=== PATIENT | male | born 1985 | race Hispanic/Latino ===

== ENCOUNTER 2020-10-08 20:12 | Inpatient (IN) | payer SELFPAY ==
[~2020-10-08 20:12] MED LIST: Iopamidol-370 76% 500 ML 1 ML ONE
[2020-10-08] MEDS ORDERED: Acetaminophen 500 MG TAB ONE ×2 (20:42→20:53)
[2020-10-08] MEDS ORDERED: Dexamethasone 10 MG/ML VIAL ONE (20:53)
[2020-10-08 20:57] LABS: #Basophils 0.1 thou/uL (0.0-0.2); #Lymphocytes 1.6 thou/uL (1.20-3.40); #Monocytes 0.7 thou/uL (0.11-0.59); #Neutrophils 7.4 thou/uL (1.40-6.50); %Basophils 0.7 % (0.0-1.0); %Eosinophils 0.2 % (0.0-10.0); %Lymphocytes 16.2 % (21.0-51.0); %Monocytes 7.1 % (0.0-10.0); %Neutrophils 75.9 % (42.0-75.0); Hemoglobin 14.6 g/dL (14.0-18.0); Mean Corpuscular HGB CONC 33.4 g/dL (32.0-36.0); Mean Corpuscular Hemoglobin 29.4 pg (27.0-31.0); Mean Platelet Volume 7.7 fL (7.4-10.4); Platelet Count 290 thou/uL (130-400); RBC Distribution Width 12.4 % (11.5-14.5); Red Blood Cell (RBC) Count 4.96 mill/uL (4.70-6.10); White Blood Cell (WBC) Count 9.7 thou/uL (4.8-10.8)
[2020-10-08 21:17] LABS: ALT (SGPT) 83 U/L (8-55); AST (SGOT) 64 U/L (5-34); Albumin 3.5 g/dL (3.5-5.0); Alkaline Phosphatase 80 U/L (40-110); Anion Gap 15 mmol/L (10-20); BUN (Urea Nitrogen) 8 mg/dL (8.9-20.6); Bilirubin, Total 0.4 mg/dL (0.2-1.2); Calc. Creatinine Clearance 0 mL/min (70-130); Calcium 8.2 mg/dL (7.8-10.44); Carbon Dioxide 25 mmol/L (22-29); Chloride 101 mmol/L (98-107); Globulin 3.5 g/dL (2.4-3.5); Glucose 140 mg/dL (70-105); Potassium 3.9 mmol/L (3.5-5.1); Sodium 137 mmol/L (136-145)
--- NOTE | 2020-10-08 21:17 | RAD ---
Portable frontal chest radiograph: 10/08/2020 COMPARISON: None HISTORY: Dyspnea FINDINGS: There is multifocal interstitial and alveolar groundglass opacity bilaterally with a perihi lar/bibasilar predominance, left greater than right. Findings are suspicious for bilateral Covid pneumonia in the proper clinical setting. No pneumothorax or large volume pleural effusion. IMPRESSION: Interstitial and alveolar opacity suspicious for extensive bilateral Covid pneumonia.
--- NOTE | 2020-10-08 22:12 | CT ---
CT angiogram chest: 10/08/2020 COMPARISON: None HISTORY: Dyspnea, shortness of breath, findings concerning for Covid pneumonia on recent chest x-ray TECHNIQUE: Axial CT imaging at 2.5 mm intervals through the chest with IV contrast. Coronal and obliq ue sagittal 3-D reformatted imaging obtained. FINDINGS: There is a vague focal area of hypodensity in the midpole of the right kidney suggest an in completely assessed cyst. Visualized upper abdomen grossly unremarkable otherwise. No axillary lymphadenopathy. No discrete enlarged mediastinal or hilar lymph nodes. Suboptimal opacif ication of the pulmonary arterial vasculature and significant motion artifact limits detailed assessment for distal pulmonary arterial embolism. No central pulmonary arterial embolism is seen inv olving the pulmonary arterial trunk or either main pulmonary artery. No significant pleural, pericardial, or mediastinal fluid. There is multifocal peripheral airspace disease within bilateral upper lobes, left greater than right and within both lower lobes with a posterior inferior predominance. These findings are most consistent with extensive bilateral Covid pneumonia. No acute osseous abnormality. No discrete endobr onchial lesion. IMPRESSION: Limited assessment for pulmonary arterial embolism with no evidence for a central acute p ulmonary arterial embolism. There is extensive pulmonary parenchymal opacity suggesting bilateral Covid pneumonia.
[2020-10-08 22:36] LABS: SARS-CoV-2 NAA Rapid Test DETECTED (NotDetected)
--- NOTE | 2020-10-09 00:11 | PDOC.HHP ---
Hospitalist HPI - History of Present Illness Dyspnea History of Present Illness: PCP: [facility] The patient is a 34-year-old male with no significant past medical history the presents to emergency department for the above complaint. The patient reports worsening shortness of breath, cough and fever over the past week. He was diagnosed with Covid on 10/01/2020. His symptoms began on 09/29/2020. At that time he had mild shortness of breath, nonproductive cough and fever, T-max 103 Fahrenheit. He was started on Augmentin and given Tessalon Perles as needed, along with an albuterol HFA inhaler. Since he has had worsening symptoms. He denies loss of smell and taste. He denies abdominal pain, nausea, vomiting, diarrhea. He denies any dysuria or hematuria. He has no history of DVT/PE. No history of asthma/COPD. He denies any chest pain, heart palpitations lightheadedness or swelling to his lower extremities. For these reasons he came to emergency department for further evaluation. ED Course: VITAL SIGNS TueOct 08, 2020 20:14 ADRI Wick Catherine Pulse: 88, Resp: 28, Temp: 103.3 (Oral), O2 sat: 87 on (Room Air), Time: 10/08/2020 20:14. VITAL SIGNS TueOct 08, 2020 20:29 Kuhn RN, Daniel BP: 154/92, Pulse: 120, Resp: 38, Temp: 103.2 (Oral), Pain: 0, O2 sat: 99 on (Room Air), Time: 10/08/2020 20:29. VITAL SIGNS TueOct 08, 2020 22:48 Kuhn RN, Daniel BP: 130/76, Pulse: 98, Resp: 38, Temp: 99.8 (Oral), Pain: 0, O2 sat: 100 on (2L Oxygen), Time: 10/08/2020 22:48. VITAL SIGNS TueOct 08, 2020 21:30 Kuhn RN, Daniel BP: 130/81, Pulse: 105, Resp: 34, Pain: 0, O2 sat: 100 on (2L Oxygen), Time: 10/08/2020 21:30. Medications: dexamethasone 10 mg IV Push Given 21:03 10/08/2020 sodium chloride 0.9 % intravenous 500 mL IV Fluid Infusion Given 20:52 10/08/2020 acetaminophen oral 1 g Oral Given 20:51 10/08/2020 Hospitalist ROS - Review of Systems All other systems reviewed; all pertinent +/- noted in HPI/Subj - Medication Medications: amoxicillin-pot clavulanate TueOct 08, 2020 20:46 Kuhn RN, Daniel tablet : Strength - 875 mg-125 mg : ORAL Patient Dose: every 12 hours.FOR 7 DAYS. benzonatate TueOct 08, 2020 20:46 Kuhn RN, Daniel capsule : Strength - 100 mg : ORAL Patient Dose: 3 times a day. Allergy Relief (fluticasone) TueOct 08, 2020 20:47 Kuhn RN, Daniel spray,suspension : Strength - 50 mcg/actuation : NASAL Patient Dose: once a day. albuterol TueOct 08, 2020 20:51 Kuhn RN, Daniel aerosol : Strength - 90 mcg : INHALATION Patient Dose: every 4 hours prn. Allergies: NKDA Hospitalist History - Past Medical History Source: patient Cardiac: reports: no pertinent history Pulmonary: reports: no pertinent history - Past Surgical History Past Surgical History: reports: no pertinent history - Family History Other Family History: Noncontributory to this case. - Social History Smoking Status: Never smoker Alcohol: reports: None Drugs: reports: none Living Situation: With Family Activity level: independent ambulation - Exam General Appearance: NAD, awake alert. negative: ill appearing General - other findings: Appears comfortable on 2 L nasal cannula Eye: anicteric sclera ENT: normocephalic atraumatic, moist mucosa Neck: supple, no lymphadenopathy Heart: RRR, no murmur, no gallops, no rubs, normal peripheral pulses Respiratory: CTAB, no wheezes, no rales, no ronchi, normal chest expansion, no tachypnea Gastrointestinal: soft, non-tender, non-distended, normal bowel sounds, no guarding, no rigidity Extremities: no cyanosis, no edema Skin: no rashes Neurological: no focal deficits Musculoskeletal: normal tone, normal strength Psychiatric: normal affect, A&O x 3 (Upper Sorbian speaking) Hospitalist Results - Labs Result Diagrams: 10/08/20 20:39 10/08/20 20:39 Lab results: WBC 9.7 thou/uL (4.8-10.8) 10/08/20 20:39 Hgb 14.6 g/dL (14.0-18.0) 10/08/20 20:39 Hct 43.6 % (42.0-52.0) 10/08/20 20:39 MCV 88.0 fL (78.0-98.0) 10/08/20 20:39 Plt Count 290 thou/uL (130-400) 10/08/20 20:39 Neutrophils % 75.9 % (42.0-75.0) H 10/08/20 20:39 Sodium 137 mmol/L (136-145) 10/08/20 20:39 Potassium 3.9 mmol/L (3.5-5.1) 10/08/20 20:39 Chloride 101 mmol/L (98-107) 10/08/20 20:39 Carbon Dioxide 25 mmol/L (22-29) 10/08/20 20:39 BUN 8 mg/dL (8.9-20.6) L 10/08/20 20:39 Creatinine 0.97 mg/dL (0.7-1.3) 10/08/20 20:39 Glucose 140 mg/dL (70-105) H 10/08/20 20:39 Lactic Acid 1.6 mmol/L (0.5-2.2) 10/08/20 21:33 Calcium 8.2 mg/dL (7.8-10.44) 10/08/20 20:39 Total Bilirubin 0.4 mg/dL (0.2-1.2) 10/08/20 20:39 AST 64 U/L (5-34) H 10/08/20 20:39 ALT 83 U/L (8-55) H 10/08/20 20:39 Alkaline Phosphatase 80 U/L (40-110) 10/08/20 20:39 Troponin I Less than 0.010 ng/mL (< 0.028) 10/08/20 20:39 Serum Total Protein 7.0 g/dL (6.0-8.3) 10/08/20 20:39 Albumin 3.5 g/dL (3.5-5.0) 10/08/20 20:39 - EKG Interpretation EKG: Sinus tachycardia. Rate 112 QTc 431 sinus tachycardia incomplete right bundle branch block - Radiology Interpretation CT scan - chest Status: report reviewed by me Additional Comment: IMPRESSION: Limited assessment for pulmonary arterial embolism with no evidence for a central acute pulmonary arterial embolism. There is extensive pulmonary parenchymal opacity suggesting bilateral Covid pneumonia. Chest x-ray Status: report reviewed by me Additional Comment: IMPRESSION: Interstitial and alveolar opacity suspicious for extensive bilateral Covid pneumonia. Hospitalist H&P A/P - Problem (1) Pneumonia due to COVID-19 virus Code(s): U07.1 - COVID-19; J12.82 - PNEUMONIA DUE TO CORONAVIRUS DISEASE 2018 Status: Acute (2) Acute respiratory failure with hypoxemia Code(s): J96.01 - ACUTE RESPIRATORY FAILURE WITH HYPOXIA Status: Acute (3) Sepsis Code(s): A41.9 - SEPSIS, UNSPECIFIED ORGANISM Status: Acute (4) Transaminitis Code(s): R74.01 - ELEVATION OF LEVELS OF LIVER TRANSAMINASE LEVELS Status: Acute - Plan Plan: 34/M recent diagnosis of COVID-19 virus presents for worsening dyspnea and fevers. Admit to medical floor, observation status. Expected length of stay less than 2 midnights. #Pneumonia due to COVID-19 virus Symptoms began 09/29/2020. Diagnosis on 10/01/2020. Started Augmentin, Tessalon, albuterol HFA. CXR/CTA consistent Covid pneumonia. Negative PE. WBC 9.7, LA 1.6. Continue dexamethasone, start Lovenox. Start remdesivir. Continue supplemental oxygen. Isolation precautions. Check CRP and ferritin in the a.m. Flu negative, blood cultures pending. #Acute respiratory failure with hypoxemia Likely related to problem #1. #Sepsis Presented febrile, tachypneic, hypoxic. WBC 9.7, LA 1.6 Received 500 mL NS in ER. Likely viral etiology, related to problem #1. Blood cultures pending. #Transaminitis Mildly elevated AST/ALT 64/83 respectively. Normal T bili and alk phos. Check hepatitis panel. Lovenox for DVT prophylaxis. Pepcid for GI prophylaxis. CODE STATUS full code. Discussed the case with attending physician Dr. Balbuena, who agrees with plan of care.
[2020-10-09] MEDS ORDERED: Acetaminophen 325 MG TAB PO PRN (00:47)
[2020-10-09] MEDS ORDERED: Ondansetron ODT 4 MG TAB PO PRN (00:47)
[2020-10-09] MEDS ORDERED: Ondansetron PF 4 MG/2 ML Vial IVP PRN (00:47)
[2020-10-09] MEDS ORDERED: Guaifenesin DM 100-10/5 ML UDCUP PO PRN (00:47)
[2020-10-09 01:47] VITALS: BMI 27.1
[2020-10-09] MEDS ORDERED: REMDESIVIR (EUA) 200 MG in Sodium Chloride 0.9% 250 ML 210 ML IV SCH (03:00)
[2020-10-09 06:33] LABS: #Lymphocytes 0.7 thou/uL (1.20-3.40); #Monocytes 0.1 thou/uL (0.11-0.59); #Neutrophils 4.7 thou/uL (1.40-6.50); %Basophils 0.1 % (0.0-1.0); %Eosinophils 0.4 % (0.0-10.0); %Monocytes 1.3 % (0.0-10.0); %Neutrophils 86.2 % (42.0-75.0); Hemoglobin 14.4 g/dL (14.0-18.0); Mean Corpuscular Hemoglobin 29.2 pg (27.0-31.0); Mean Corpuscular Volume 88.5 fL (78.0-98.0); Platelet Count 295 thou/uL (130-400); RBC Distribution Width 12.5 % (11.5-14.5); Red Blood Cell (RBC) Count 4.93 mill/uL (4.70-6.10); White Blood Cell (WBC) Count 5.5 thou/uL (4.8-10.8)
[2020-10-09 06:58] LABS: ALT (SGPT) 96 U/L (8-55); AST (SGOT) 69 U/L (5-34); Albumin 3.3 g/dL (3.5-5.0); Alkaline Phosphatase 81 U/L (40-110); Anion Gap 15 mmol/L (10-20); BUN (Urea Nitrogen) 9 mg/dL (8.9-20.6); Bilirubin, Total 0.3 mg/dL (0.2-1.2); Calc. Creatinine Clearance 129 mL/min (70-130); Calcium 8.4 mg/dL (7.8-10.44); Carbon Dioxide 23 mmol/L (22-29); Chloride 104 mmol/L (98-107); Globulin 3.5 g/dL (2.4-3.5); Glucose 198 mg/dL (70-105); Potassium 4.8 mmol/L (3.5-5.1); Protein, Total 6.8 g/dL (6.0-8.3); Sodium 137 mmol/L (136-145)
[2020-10-09 07:12] LABS: Ferritin 514.99 ng/mL (22-322)
[2020-10-09 07:28] LABS: HBCM Index 0.06 S/CO (0-0.79); HBSAg Index 0.19 S/CO (0-0.99); Hep A IgM AB Non-Reactive (NonReactive); Hep A IgM S/CO 0.18 S/CO (0-0.79); Hep B Surf Ag Non-Reactive S/CO (NonReactive); Hep C IgG Ab Non-Reactive (NonReactive); Hep C Index 0.18 S/CO (0-0.79); Hepatitis B Core IgM Abs Non-Reactive (NonReactive)
[2020-10-09] MEDS: Famotidine 20 MG TAB PO SCH ×2 (08:01→19:58)
[2020-10-09] MEDS: Zinc Sulfate 220 MG CAP PO SCH (08:01)
[2020-10-09] MEDS: Ascorbic Acid 500 mg Chewable Tablet PO SCH (08:01)
[2020-10-09] MEDS: Cholecalciferol 1,000 UNITS (25 MCG) TAB PO SCH (08:01)
[2020-10-09] MEDS: Dexamethasone 4 mg/ml Vial SLOW IVP SCH (08:02)
[2020-10-09] MEDS: Enoxaparin Sodium 40 MG/0.4 ML SYRINGE SC SCH ×2 (08:02→19:58)
[2020-10-09] MEDS ORDERED: Albuterol 200 PUFF (6.7GM INHALER) INH PRN (09:22)
[2020-10-09] MEDS: Albuterol 200 PUFF (6.7GM INHALER) INH SCH ×4 (11:29→23:27)
[2020-10-09 20:37] LABS: Bacteria/HPF None Seen HPF (None Seen); Bilirubin Negative (Negative); Blood, Urine Negative (Negative); Clarity Clear (Clear); Glucose, Urine (Dipstick) Normal (Negative); Ketone, Urine Trace mg/dL (Negative); Leukocyte Negative Leu/uL (Negative); Nitrite Negative (Negative); Protein, Urine (Dipstick) 30 mg/dL (Neg-Trace); RBC/HPF None Seen HPF (0-3); Specific Gravity, Urine 1.031 (1.002-1.036); Squamous Epithelial 0-3 HPF (0-3); Urobilinogen Normal mg/dL (Less than 2)
[2020-10-10] MEDS: Albuterol 200 PUFF (6.7GM INHALER) INH SCH ×6 (03:57→23:50)
[2020-10-10] MEDS: REMDESIVIR (EUA) 100 MG in Sodium Chloride 0.9% 250 ML 230 ML IV SCH (03:58)
[2020-10-10 06:13] LABS: #Basophils 0.1 thou/uL (0.0-0.2); #Lymphocytes 1.2 thou/uL (1.20-3.40); #Monocytes 1.4 thou/uL (0.11-0.59); %Basophils 0.6 % (0.0-1.0); %Eosinophils 0.2 % (0.0-10.0); %Lymphocytes 9.5 % (21.0-51.0); %Monocytes 11.1 % (0.0-10.0); %Neutrophils 78.6 % (42.0-75.0); Hemoglobin 14.3 g/dL (14.0-18.0); Mean Corpuscular Volume 88.1 fL (78.0-98.0); Mean Platelet Volume 7.8 fL (7.4-10.4); Platelet Count 373 thou/uL (130-400); RBC Distribution Width 12.6 % (11.5-14.5); Red Blood Cell (RBC) Count 4.91 mill/uL (4.70-6.10); White Blood Cell (WBC) Count 12.7 thou/uL (4.8-10.8)
[2020-10-10 06:36] LABS: ALT (SGPT) 106 U/L (8-55); AST (SGOT) 59 U/L (5-34); Albumin 3.2 g/dL (3.5-5.0); Alkaline Phosphatase 77 U/L (40-110); Anion Gap 15 mmol/L (10-20); BUN (Urea Nitrogen) 19 mg/dL (8.9-20.6); Bilirubin, Total 0.2 mg/dL (0.2-1.2); Calc. Creatinine Clearance 132 mL/min (70-130); Calcium 8.6 mg/dL (7.8-10.44); Carbon Dioxide 24 mmol/L (22-29); Chloride 104 mmol/L (98-107); Globulin 3.4 g/dL (2.4-3.5); Glucose 157 mg/dL (70-105); Potassium 4.2 mmol/L (3.5-5.1); Protein, Total 6.6 g/dL (6.0-8.3); Sodium 139 mmol/L (136-145)
[2020-10-10] MEDS: Cholecalciferol 1,000 UNITS (25 MCG) TAB PO SCH (07:59)
[2020-10-10] MEDS: Enoxaparin Sodium 40 MG/0.4 ML SYRINGE SC SCH ×2 (07:59→20:27)
[2020-10-10] MEDS: Famotidine 20 MG TAB PO SCH ×2 (07:59→20:27)
[2020-10-10] MEDS: Zinc Sulfate 220 MG CAP PO SCH (07:59)
[2020-10-10] MEDS: Ascorbic Acid 500 mg Chewable Tablet PO SCH (08:00)
[2020-10-10] MEDS: Dexamethasone 4 mg/ml Vial SLOW IVP SCH (08:03)
--- NOTE | 2020-10-10 20:56 | PDOC.HOSPP ---
- Subjective Encounter Date: 10/10/20 Encounter Time: 18:00 Subjective: Patient seen and examined for respiratory failure/COVID-19. Short of breath on minimal exertion. Denies any chest pain or palpitations - Objective Vital Signs & Weight: Vital Signs (12 hours) Temp Pulse Resp BP Pulse Ox 10/10/20 19:54 97.9 F 75 20 119/68 119 H 10/10/20 17:46 127/72 10/10/20 15:35 86 28 H 100 10/10/20 11:00 97.6 F 86 36 H 132/71 100 Weight Admit Weight 162 lb 14.72 oz Weight 162 lb 14.746 oz I&O: 10/09/20 10/10/20 10/11/20 06:59 06:59 06:59 Intake Total 890 760 Balance 890 760 Result Diagrams: 10/10/20 05:39 10/10/20 05:39 Additional Labs: Abnormal Lab Results - Last 48 hrs 10/08/20 20:39: BUN 8 L, AST 64 H, ALT 83 H, Albumin/Globulin Ratio 1.0 L 10/08/20 20:39: D-Dimer 0.69 H 10/08/20 20:39: Neutrophils % 75.9 H, Lymphocytes % 16.2 L, Neutrophils # 7.4 H, Monocytes # 0.7 H 10/08/20 21:22: SARS-CoV-2 Rap RNA(RT-PCR) DETECTED A* 10/09/20 06:01: AST 69 H, ALT 96 H, Albumin 3.3 L, Albumin/Globulin Ratio 0.9 L 10/09/20 06:01: Neutrophils % 86.2 H, Lymphocytes % 12.0 L, Lymphocytes # 0.7 L, Monocytes # 0.1 L 10/09/20 06:01: Ferritin 514.99 H 10/09/20 06:01: C-Reactive Protein 14.37 H 10/09/20 20:18: Urine Protein 30 A, Urine Ketones Trace A, Urine WBC 4-6 A 10/10/20 05:39: AST 59 H, ALT 106 H, Albumin 3.2 L, Albumin/Globulin Ratio 0.9 L 10/10/20 05:39: WBC 12.7 H, Neutrophils % 78.6 H, Lymphocytes % 9.5 L, Monocytes % 11.1 H, Neutrophils # 10.0 H, Monocytes # 1.4 H Microbiology - Entire Visit 10/08/20 21:33 Venous blood - Right Hand Blood Culture - Preliminary NO GROWTH AT 48 HOURS 10/08/20 21:33 Venous blood - Left Arm Blood Culture - Preliminary NO GROWTH AT 48 HOURS Radiology Reviewed by me: Yes (CT angiogramno pulmonary embolism, bilateral infiltrates) EKG Reviewed by me: Yes (ST on admission) Hospitalist ROS - Review of Systems Cardiovascular: denies: chest pain, palpitations, orthopnea, paroxysmal noc. dyspnea, edema, light headedness, other Gastrointestinal: denies: nausea, vomiting, abdominal pain, diarrhea, constipation, melena, hematochezia, other - Medication Medications: Active Medications Generic Name Dose Route Start Last Admin Trade Name Freq PRN Reason Stop Dose Admin Albuterol Sulfate 2 puff 10/09/20 10:30 10/10/20 18:29 Albuterol 200 Puff (6.7gm Inhaler) INH 2 puff [id number] JEZ Administration Ascorbic Acid 1,000 mg 10/09/20 09:00 10/10/20 08:00 Ascorbic Acid 500 Mg Chewable Tablet PO 1,000 mg DAILY JEZ Administration Cholecalciferol 5,000 units 10/09/20 09:00 10/10/20 07:59 Cholecalciferol 1,000 Units (25 Mcg) Tab PO 5,000 units DAILY JEZ Administration Dexamethasone 6 mg 10/09/20 09:00 10/10/20 08:03 Dexamethasone 4 Mg/Ml Vial SLOW IVP 6 mg DAILY JEZ Administration Enoxaparin Sodium 40 mg 10/09/20 09:00 10/10/20 20:27 Enoxaparin Sodium 40 Mg/0.4 Ml Syringe SC 40 mg 0900,2100 JEZ Administration Famotidine 20 mg 10/09/20 09:00 10/10/20 20:27 Famotidine 20 Mg Tab PO 20 mg BID JEZ Administration Remdesivir 100 mg/ Sodium 250 mls @ 250 mls/hr 10/10/20 03:00 10/10/20 03:58 Chloride IV 10/13/20 03:59 250 mls 0300 JEZ Administration Sodium Chloride 10 ml 10/09/20 00:47 10/09/20 08:02 Flush - Normal Saline 10 Ml Syringe IVF 10 ml PRN PRN Administration Saline Flush Zinc Sulfate 220 mg 10/09/20 09:00 10/10/20 07:59 Zinc Sulfate 220 Mg Cap PO 220 mg DAILY JEZ Administration - Exam General Appearance: awake alert General - other findings: In respiratory distress Neck: supple Heart: RRR, no gallops, no rubs, normal peripheral pulses Respiratory: no wheezes, normal chest expansion, rales, rhonchi Gastrointestinal: soft, non-tender, no guarding, no rigidity Extremities: no cyanosis, no clubbing Neurological: no new deficit Musculoskeletal: generalized weakness Psychiatric: normal affect, A&O x 3 Hosp A/P - Plan DVT proph w/lovenox, DVT proph w/SCDs Acute hypoxic respiratory failure/sepsis due to moderate to severe bilateral COVID-19 pneumonia Abnormal LFTs probably due to above Elevated inflammatory markers Plan: Continue O2 supplementation. Continue remdesivir. We will continue Decadron. Continue Lovenox for DVT prophylaxis continue bronchodilators. DVT and GI prophylaxis
[2020-10-10] MEDS ORDERED: Doxycycline 100 MG CAP PO SCH (23:00)
[2020-10-11] MEDS: Albuterol 200 PUFF (6.7GM INHALER) INH SCH ×6 (03:08→22:28)
[2020-10-11] MEDS: REMDESIVIR (EUA) 100 MG in Sodium Chloride 0.9% 250 ML 230 ML IV SCH (04:15)
[2020-10-11 07:00] LABS: #Lymphocytes 1.9 thou/uL (1.20-3.40); #Monocytes 1.5 thou/uL (0.11-0.59); #Neutrophils 8.8 thou/uL (1.40-6.50); %Basophils 0.1 % (0.0-1.0); %Eosinophils 0.3 % (0.0-10.0); %Lymphocytes 15.5 % (21.0-51.0); %Monocytes 12.1 % (0.0-10.0); %Neutrophils 71.9 % (42.0-75.0); Hemoglobin 14.6 g/dL (14.0-18.0); Mean Corpuscular HGB CONC 33.3 g/dL (32.0-36.0); Mean Corpuscular Hemoglobin 29.4 pg (27.0-31.0); Mean Corpuscular Volume 88.4 fL (78.0-98.0); Mean Platelet Volume 7.5 fL (7.4-10.4); Platelet Count 400 thou/uL (130-400); RBC Distribution Width 12.8 % (11.5-14.5); Red Blood Cell (RBC) Count 4.98 mill/uL (4.70-6.10); White Blood Cell (WBC) Count 12.2 thou/uL (4.8-10.8)
[2020-10-11 07:27] LABS: ALT (SGPT) 153 U/L (8-55); AST (SGOT) 84 U/L (5-34); Albumin 3.1 g/dL (3.5-5.0); Alkaline Phosphatase 71 U/L (40-110); Anion Gap 14 mmol/L (10-20); BUN (Urea Nitrogen) 17 mg/dL (8.9-20.6); Bilirubin, Total 0.2 mg/dL (0.2-1.2); CRP (Inflammatory) 3.42 mg/dL (= or < 0.5); Calc. Creatinine Clearance 129 mL/min (70-130); Calcium 8.3 mg/dL (7.8-10.44); Carbon Dioxide 26 mmol/L (22-29); Chloride 106 mmol/L (98-107); Globulin 3.1 g/dL (2.4-3.5); Glucose 115 mg/dL (70-105); Potassium 4.4 mmol/L (3.5-5.1); Protein, Total 6.2 g/dL (6.0-8.3); Sodium 142 mmol/L (136-145)
[2020-10-11] MEDS: Ascorbic Acid 500 mg Chewable Tablet PO SCH (08:07)
[2020-10-11] MEDS: Enoxaparin Sodium 40 MG/0.4 ML SYRINGE SC SCH ×2 (08:07→20:56)
[2020-10-11] MEDS: guaiFENesin ER 600 MG TAB PO SCH ×2 (08:07→20:56)
[2020-10-11] MEDS: Cholecalciferol 1,000 UNITS (25 MCG) TAB PO SCH (08:08)
[2020-10-11] MEDS: Dexamethasone 4 mg/ml Vial SLOW IVP SCH (08:08)
[2020-10-11] MEDS: Zinc Sulfate 220 MG CAP PO SCH (08:08)
[2020-10-11] MEDS ORDERED: Doxycycline 100 MG CAP PO SCH (09:00)
[2020-10-11] MEDS: Doxycycline 100 MG CAP PO SCH ×2 (10:42→21:04)
--- NOTE | 2020-10-11 11:20 | EKG ---
Test Reason : Blood Pressure : / mmHG Vent. Rate : 112 BPM Atrial Rate : 112 BPM P-R Int : 140 ms QRS Dur : 076 ms QT Int : 316 ms P-R-T Axes : 054 003 032 degrees QTc Int : 431 ms Sinus tachycardia Possible Left atrial enlargement Nonspecific ST and T wave abnormality Incomplete right bundle branch block Abnormal ECG Confirmed by LEIGH CASTILLO ([id number]), associate editor CAROLE JACOBSON ([id number]) on 10/11/2020 11:20:28 AM Referred By: Confirmed By:LEIGH CASTILLO
[2020-10-12] MEDS: Albuterol 200 PUFF (6.7GM INHALER) INH SCH ×6 (02:38→22:21)
[2020-10-12] MEDS: REMDESIVIR (EUA) 100 MG in Sodium Chloride 0.9% 250 ML 230 ML IV SCH (04:15)
[2020-10-12 06:09] LABS: Hemoglobin 14.6 g/dL (14.0-18.0); Mean Corpuscular Hemoglobin 29.3 pg (27.0-31.0); Mean Platelet Volume 7.3 fL (7.4-10.4); Platelet Count 439 thou/uL (130-400); RBC Distribution Width 12.8 % (11.5-14.5); Red Blood Cell (RBC) Count 4.99 mill/uL (4.70-6.10); White Blood Cell (WBC) Count 12.7 thou/uL (4.8-10.8)
[2020-10-12 06:27] LABS: Band 7 % (5-11); Lymphocytes 19 % (21-51); MDiff Complete? YES; Monocytes 11 % (0-10); Neutrophil 63 % (42-75); Nucleated RBC 3 % (0)
[2020-10-12 06:28] LABS: ALT (SGPT) 381 U/L (8-55); AST (SGOT) 162 U/L (5-34); Albumin 3.1 g/dL (3.5-5.0); Alkaline Phosphatase 79 U/L (40-110); Anion Gap 13 mmol/L (10-20); BUN (Urea Nitrogen) 19 mg/dL (8.9-20.6); Bilirubin, Total 0.3 mg/dL (0.2-1.2); CRP (Inflammatory) 1.96 mg/dL (= or < 0.5); Calc. Creatinine Clearance 115 mL/min (70-130); Calcium 8.5 mg/dL (7.8-10.44); Carbon Dioxide 27 mmol/L (22-29); Chloride 104 mmol/L (98-107); Globulin 2.9 g/dL (2.4-3.5); Glucose 98 mg/dL (70-105); Potassium 4.4 mmol/L (3.5-5.1); Sodium 140 mmol/L (136-145)
[2020-10-12] MEDS: Zinc Sulfate 220 MG CAP PO SCH (09:16)
[2020-10-12] MEDS: Doxycycline 100 MG CAP PO SCH ×2 (09:18→22:21)
[2020-10-12] MEDS: Cholecalciferol 1,000 UNITS (25 MCG) TAB PO SCH (09:18)
[2020-10-12] MEDS: Enoxaparin Sodium 40 MG/0.4 ML SYRINGE SC SCH (09:18)
[2020-10-12] MEDS: Ascorbic Acid 500 mg Chewable Tablet PO SCH (09:19)
[2020-10-12] MEDS: guaiFENesin ER 600 MG TAB PO SCH ×2 (09:19→22:21)
[2020-10-12] MEDS: Dexamethasone 4 mg/ml Vial SLOW IVP SCH (09:19)
--- NOTE | 2020-10-12 10:47 | PDOC.HOSPP ---
- Subjective Encounter Date: 10/11/20 Encounter Time: 16:00 Subjective: Patient seen and examined for respiratory failure/COVID-19 pneumonia. Feeling slightly better. Dry cough. Short of breath on mild exertion. - Objective Vital Signs & Weight: Vital Signs (12 hours) Temp Pulse Resp BP Pulse Ox 10/12/20 08:00 98 10/12/20 07:14 98.1 F 69 18 109/70 98 10/12/20 07:00 98.1 F 10/12/20 03:00 97.7 F 76 18 114/71 94 L Weight Admit Weight 162 lb 14.72 oz Weight 162 lb 14.746 oz I&O: 10/11/20 10/12/20 10/13/20 06:59 06:59 06:59 Intake Total 760 1287 Balance 760 1287 Result Diagrams: 10/12/20 05:52 10/12/20 05:52 Additional Labs: Abnormal Lab Results - Last 48 hrs 10/11/20 06:24: AST 84 H, ALT 153 H, C-Reactive Protein 3.42 H, Albumin 3.1 L, Albumin/Globulin Ratio 1.0 L 10/11/20 06:24: Ferritin 390.39 H 10/11/20 06:24: WBC 12.2 H, Lymphocytes % 15.5 L, Monocytes % 12.1 H, Neutrophils # 8.8 H, Monocytes # 1.5 H 10/11/20 06:24: D-Dimer Less than 0.27 L Microbiology - Entire Visit 10/08/20 21:33 Venous blood - Right Hand Blood Culture - Preliminary NO GROWTH AT 48 HOURS 10/08/20 21:33 Venous blood - Left Arm Blood Culture - Preliminary NO GROWTH AT 48 HOURS Hospitalist ROS - Review of Systems Cardiovascular: denies: chest pain, palpitations, orthopnea, paroxysmal noc. dyspnea, edema, light headedness, other Gastrointestinal: denies: nausea, vomiting, abdominal pain, diarrhea, constipation, melena, hematochezia, other - Medication Medications: Active Medications Generic Name Dose Route Start Last Admin Trade Name Freq PRN Reason Stop Dose Admin Albuterol Sulfate 2 puff 10/09/20 10:30 10/12/20 09:20 Albuterol 200 Puff (6.7gm Inhaler) INH 2 puff [id number] JEZ Administration Ascorbic Acid 1,000 mg 10/09/20 09:00 10/12/20 09:19 Ascorbic Acid 500 Mg Chewable Tablet PO 1,000 mg DAILY JEZ Administration Cholecalciferol 5,000 units 10/09/20 09:00 10/12/20 09:18 Cholecalciferol 1,000 Units (25 Mcg) Tab PO 5,000 units DAILY JEZ Administration Dexamethasone 6 mg 10/09/20 09:00 10/12/20 09:19 Dexamethasone 4 Mg/Ml Vial SLOW IVP 6 mg DAILY JEZ Administration Doxycycline Hyclate 100 mg 10/11/20 10:00 10/12/20 09:18 Doxycycline 100 Mg Cap PO 100 mg 1000,2200 JEZ Administration Enoxaparin Sodium 40 mg 10/09/20 09:00 10/12/20 09:18 Enoxaparin Sodium 40 Mg/0.4 Ml Syringe SC 40 mg 0900,2100 JEZ Administration Guaifenesin 600 mg 10/11/20 09:00 10/12/20 09:19 Guaifenesin Er 600 Mg Tab PO 600 mg Q12HR JEZ Administration Remdesivir 100 mg/ Sodium 250 mls @ 250 mls/hr 10/10/20 03:00 10/12/20 04:15 Chloride IV 10/13/20 03:59 250 mls 0300 JEZ Administration Pantoprazole Sodium 40 mg 10/11/20 09:00 10/12/20 09:18 Pantoprazole 40 Mg Tab PO 40 mg DAILY JEZ Administration Sodium Chloride 10 ml 10/09/20 00:47 10/12/20 09:20 Flush - Normal Saline 10 Ml Syringe IVF 10 ml PRN PRN Administration Saline Flush Zinc Sulfate 220 mg 10/11/20 08:00 10/12/20 09:16 Zinc Sulfate 220 Mg Cap PO 220 mg QAM-WM JEZ Administration - Exam General Appearance: ill appearing Heart: RRR, no gallops Respiratory: rales, rhonchi, tachypneic Gastrointestinal: non-tender, normal bowel sounds Extremities: no cyanosis Hosp A/P - Plan DVT proph w/SCDs Acute hypoxic respiratory failure/sepsis due to moderate to severe bilateral COVID-19 pneumonia Abnormal LFTs probably due to above Elevated inflammatory markers Plan: Continue remdesivir Continue Decadron Continue O2 supplementation. Home O2 assessment at discharge. Continue bronchodilators. Continue supportive care
--- NOTE | 2020-10-12 17:02 | PDOC.HOSPP ---
- Subjective Encounter Date: 10/12/20 Encounter Time: 16:00 Subjective: Patient seen and examined for respiratory failure due to COVID-19 pneumonia. Shortness of breath improving. On room air. Mild dry cough. No fever or chills. - Objective Vital Signs & Weight: Vital Signs (12 hours) Temp Pulse Resp BP Pulse Ox 10/12/20 16:00 98.1 F 10/12/20 15:56 98.1 F 62 18 121/77 100 10/12/20 11:18 98.3 F 67 18 118/73 98 10/12/20 11:00 98.3 F 10/12/20 08:00 98 10/12/20 07:14 98.1 F 69 18 109/70 98 10/12/20 07:00 98.1 F Weight Admit Weight 162 lb 14.72 oz Weight 162 lb 14.746 oz I&O: 10/11/20 10/12/20 10/13/20 06:59 06:59 06:59 Intake Total 760 1287 600 Balance 760 1287 600 Result Diagrams: 10/12/20 05:52 10/12/20 05:52 Additional Labs: Abnormal Lab Results - Last 48 hrs 10/11/20 06:24: AST 84 H, ALT 153 H, C-Reactive Protein 3.42 H, Albumin 3.1 L, Albumin/Globulin Ratio 1.0 L 10/11/20 06:24: Ferritin 390.39 H 10/11/20 06:24: WBC 12.2 H, Lymphocytes % 15.5 L, Monocytes % 12.1 H, Neutrophils # 8.8 H, Monocytes # 1.5 H 10/11/20 06:24: D-Dimer Less than 0.27 L 10/12/20 05:52: AST 162 H, ALT 381 H, C-Reactive Protein 1.96 H, Albumin 3.1 L, Albumin/Globulin Ratio 1.1 L 10/12/20 05:52: Ferritin 426.15 H 10/12/20 05:52: WBC 12.7 H, Plt Count 439 H, MPV 7.3 L, Lymphocytes % (Manual) 19 L, Monocytes % (Manual) 11 H, Nucleated RBCs # (Man) 3 H Microbiology - Entire Visit 10/08/20 21:33 Venous blood - Right Hand Blood Culture - Preliminary NO GROWTH AT 48 HOURS 10/08/20 21:33 Venous blood - Left Arm Blood Culture - Preliminary NO GROWTH AT 48 HOURS Hospitalist ROS - Review of Systems Cardiovascular: denies: chest pain, palpitations, orthopnea, paroxysmal noc. dyspnea, edema, light headedness, other Gastrointestinal: denies: nausea, vomiting, abdominal pain, diarrhea, constipation, melena, hematochezia, other - Medication Medications: Active Medications Generic Name Dose Route Start Last Admin Trade Name Freq PRN Reason Stop Dose Admin Albuterol Sulfate 2 puff 10/09/20 10:30 10/12/20 15:06 Albuterol 200 Puff (6.7gm Inhaler) INH 2 puff [id number] JEZ Administration Ascorbic Acid 1,000 mg 10/09/20 09:00 10/12/20 09:19 Ascorbic Acid 500 Mg Chewable Tablet PO 1,000 mg DAILY JEZ Administration Cholecalciferol 5,000 units 10/09/20 09:00 10/12/20 09:18 Cholecalciferol 1,000 Units (25 Mcg) Tab PO 5,000 units DAILY JEZ Administration Dexamethasone 6 mg 10/09/20 09:00 10/12/20 09:19 Dexamethasone 4 Mg/Ml Vial SLOW IVP 6 mg DAILY JEZ Administration Doxycycline Hyclate 100 mg 10/11/20 10:00 10/12/20 09:18 Doxycycline 100 Mg Cap PO 100 mg 1000,2200 JEZ Administration Enoxaparin Sodium 40 mg 10/09/20 09:00 10/12/20 09:18 Enoxaparin Sodium 40 Mg/0.4 Ml Syringe SC 40 mg 0900,2100 JEZ Administration Guaifenesin 600 mg 10/11/20 09:00 10/12/20 09:19 Guaifenesin Er 600 Mg Tab PO 600 mg Q12HR JEZ Administration Remdesivir 100 mg/ Sodium 250 mls @ 250 mls/hr 10/10/20 03:00 10/12/20 04:15 Chloride IV 10/13/20 03:59 250 mls 0300 JEZ Administration Pantoprazole Sodium 40 mg 10/11/20 09:00 10/12/20 09:18 Pantoprazole 40 Mg Tab PO 40 mg DAILY JEZ Administration Sodium Chloride 10 ml 10/09/20 00:47 10/12/20 09:20 Flush - Normal Saline 10 Ml Syringe IVF 10 ml PRN PRN Administration Saline Flush Zinc Sulfate 220 mg 10/11/20 08:00 10/12/20 09:16 Zinc Sulfate 220 Mg Cap PO 220 mg QAM-WM JEZ Administration - Exam General Appearance: awake alert Neck: supple, no JVD Heart: RRR, no gallops Respiratory: no wheezes, rales, rhonchi Gastrointestinal: soft, non-tender, no rigidity Extremities: no cyanosis Neurological: no new deficit Hosp A/P - Plan DVT proph w/lovenox, DVT proph w/SCDs Acute hypoxic respiratory failure/sepsis due to moderate to severe bilateral COVID-19 pneumonia Abnormal LFTs probably due to above Elevated inflammatory markers Plan: Patient on room air. CRP and D-dimer improving. Blood cultures negative. Will complete remdesivir. Plan for DC in a.m after remdesivir. Discontinue Lovenox. Continue other medications as above.
[2020-10-13] MEDS ORDERED: REMDESIVIR (EUA) 100 MG in Sodium Chloride 0.9% 100 ML IV SCH (03:00)
[2020-10-13] MEDS: Albuterol 200 PUFF (6.7GM INHALER) INH SCH ×3 (03:12→09:45)
[2020-10-13 06:47] LABS: #Basophils 0.1 thou/uL (0.0-0.2); #Eosinphils 0.1 thou/uL (0.0-0.7); #Lymphocytes 3.6 thou/uL (1.20-3.40); #Monocytes 1.4 thou/uL (0.11-0.59); #Neutrophils 7.9 thou/uL (1.40-6.50); %Basophils 0.7 % (0.0-1.0); %Eosinophils 0.5 % (0.0-10.0); %Lymphocytes 27.7 % (21.0-51.0); %Neutrophils 60.1 % (42.0-75.0); Hemoglobin 14.7 g/dL (14.0-18.0); Mean Corpuscular HGB CONC 32.6 g/dL (32.0-36.0); Mean Corpuscular Volume 88.9 fL (78.0-98.0); Mean Platelet Volume 7.4 fL (7.4-10.4); Platelet Count 480 thou/uL (130-400); RBC Distribution Width 12.9 % (11.5-14.5); Red Blood Cell (RBC) Count 5.07 mill/uL (4.70-6.10); White Blood Cell (WBC) Count 13.1 thou/uL (4.8-10.8)
[2020-10-13 06:54] LABS: ALT (SGPT) 360 U/L (8-55); AST (SGOT) 121 U/L (5-34); Albumin 3.1 g/dL (3.5-5.0); Alkaline Phosphatase 83 U/L (40-110); Anion Gap 11 mmol/L (10-20); BUN (Urea Nitrogen) 20 mg/dL (8.9-20.6); Bilirubin, Total 0.3 mg/dL (0.2-1.2); CRP (Inflammatory) 1.32 mg/dL (= or < 0.5); Calc. Creatinine Clearance 119 mL/min (70-130); Calcium 8.4 mg/dL (7.8-10.44); Carbon Dioxide 28 mmol/L (22-29); Chloride 103 mmol/L (98-107); Globulin 3.1 g/dL (2.4-3.5); Glucose 94 mg/dL (70-105); Potassium 4.3 mmol/L (3.5-5.1); Protein, Total 6.2 g/dL (6.0-8.3); Sodium 138 mmol/L (136-145)
[2020-10-13 07:02] VITALS: BP 114/71; TEMP 97.9
[2020-10-13] MEDS: Doxycycline 100 MG CAP PO SCH (07:55)
[2020-10-13] MEDS: Dexamethasone 4 mg/ml Vial SLOW IVP SCH (07:55)
[2020-10-13] MEDS: Cholecalciferol 1,000 UNITS (25 MCG) TAB PO SCH (07:56)
[2020-10-13] MEDS: Zinc Sulfate 220 MG CAP PO SCH (07:56)
[2020-10-13] MEDS: Ascorbic Acid 500 mg Chewable Tablet PO SCH (07:56)
[2020-10-13] MEDS: guaiFENesin ER 600 MG TAB PO SCH (07:56)
--- NOTE | 2020-10-13 22:52 | PDOC.DS.DS ---
Provider - Provider Date of Admission: 10/09/20 00:30 Date of Discharge: 10/13/20 Admitting Provider: Wilfrid Balbuena MD Primary Care Physician: [facility] Course - Hospital Course Hospital Course: Patient is a 34-year-old male who presented to the emergency room on 10/09 with shortness of breath along with generalized weakness. He was diagnosed with COVID 19 on 10/01 with symptom onset on 09/29. His workup was consistent with extensive bilateral COVID 19 pneumonia. He was admitted to the hospital with about diagnosis. He was started on O2 supplementation with bronchodilators, dexamethasone and Remdesivir. His inflammatory markers have gradually improved. He is saturating 96 percent on room air. He did not qualify for home oxygen. He appears stable for discharge. Final diagnosis: Acute hypoxic respiratory failure/sepsis due to moderate to severe bilateral COVID-19 pneumonia Abnormal LFTs probably due to above Elevated inflammatory markers Time coordinating the discharge of this patient was 32 minutes. Resuscitation Status: 10/09/20 00:47 Resuscitation Status Routine Co-Sign Provider: Resuscitation Status: FULL: Full Resuscitation Discussed with: patient - Labs Lab Results: 10/13/20 05:29 10/13/20 05:29 Abnormal Lab Results - Last 48 hrs 10/12/20 05:52: AST 162 H, ALT 381 H, C-Reactive Protein 1.96 H, Albumin 3.1 L, Albumin/Globulin Ratio 1.1 L 10/12/20 05:52: Ferritin 426.15 H 10/12/20 05:52: WBC 12.7 H, Plt Count 439 H, MPV 7.3 L, Lymphocytes % (Manual) 19 L, Monocytes % (Manual) 11 H, Nucleated RBCs # (Man) 3 H 10/13/20 05:29: AST 121 H, ALT 360 H, C-Reactive Protein 1.32 H, Albumin 3.1 L, Albumin/Globulin Ratio 1.0 L 10/13/20 05:29: Ferritin 371.99 H 10/13/20 05:29: WBC 13.1 H, Plt Count 480 H, Monocytes % 11.0 H, Neutrophils # 7.9 H, Lymphocytes # 3.6 H, Monocytes # 1.4 H Microbiology - Entire Visit 10/08/20 21:33 Venous blood - Right Hand Blood Culture - Preliminary NO GROWTH AT 48 HOURS 10/08/20 21:33 Venous blood - Left Arm Blood Culture - Preliminary NO GROWTH AT 48 HOURS - Physical Exam Vitals: Weight Admit Weight 162 lb 14.72 oz Weight 162 lb 14.746 oz Physical Exam: The patient was seen and examined on the day of discharge. Plan - Discharge Medications Prescriptions: Dexamethasone 6 mg PO DAILY #5 tablet Famotidine [Pepcid] 20 mg PO BID #20 tab Home Medications: Medication Instructions Recorded Confirmed Type Dexamethasone 6 mg PO DAILY #5 tablet 10/13/20 Rx Famotidine [Pepcid] 20 mg PO BID #20 tab 10/13/20 Rx Allergies: No Known Allergies Allergy (Unverified 10/09/20 01:57) - Discharge Instructions Discharge Instructions:: CMP after 1 week - PCP to arrange/follow YOUR PRESCRIPTIONS WERE SENT TO: [facility] [address] [place] [id number] - Follow up Plan Referrals: [facility] [Primary Care Provider] - 7 Days Nael Mcgrath MD [Active] - 14 Days Disposition: HOME Quality - Care Measures CORE MEASURES:: N/A
== END 2020-10-13 11:47 | disposition home or self-care (01) | DRG 871 ==
LOC: ERS 20:12 → T4-B 10-09 00:30
PROVIDERS: ADMIT Internal Medicine; ATTEND Internal Medicine
PROC: XW033E5 Introduction of Remdesivir Anti-infective into Peripheral Vein, Percutaneous Approach, New Technology Group 5 (ICD-10-PCS; principal; 2020-10-09)
PROC: 8E0ZXY6 Isolation (ICD-10-PCS; 2020-10-09)
DX: A41.89 Other specified sepsis (principal); U07.1 COVID-19; J96.01 Acute respiratory failure with hypoxia; J12.82 Pneumonia due to coronavirus disease 2019; R94.5 Abnormal results of liver function studies; R74.01 Elevation of levels of liver transaminase levels; Z79.899 Other long term (current) drug therapy
CPT/HCPCS: 0240U; 36415; 71045; 71275; 80053; 80074; 81001; 82728; 83605; 84443; 84484; 85025; 85379; 86140; 87040; 93005; 96374; J1100; J1650; J3490; J7050; Q9967

== ENCOUNTER 2024-11-18 18:03 | Emergency (ER) | payer SELFPAY | END 2024-11-18 19:21 | disposition home or self-care (01) | LOC: ERS 18:03 | DX: J10.1 Influenza due to other identified influenza virus with other respiratory manifestations (principal) | CPT/HCPCS: 87428; 99283 ==